=== PATIENT | male | born 1985 | race African-American/Black ===

== ENCOUNTER 2021-07-14 12:50 | Inpatient (IN) | payer OTHER, SELFPAY ==
--- NOTE | ~2021-07-14 | CT_ITS ---
EXAMINATION: NONCONTRAST HEAD CT NONCONTRAST MAXILLOFACIAL CT NONCONTRAST CERVICAL SPINE CT INDICATION INFORMATION: Seizure. Left-sided headache. Nasal discharge. COMPARISON: None TECHNIQUE: Separate noncontrast CT examinations of the head, maxillofacial bones, and cervical spine were performed. Coronal and sagittal images were created for each examination at the technologist workstation. This CT examination was performed using dose optimization techniques as appropriate, variously including the following: *Automated exposure control *Adjustment of mA and/or kV according to patient size (this includes techniques or standardized protocols for targeted exams where dose is matched to indication/reason for exam; i.e. extremities or head) *Use of iterative reconstruction technique DLP: 1502 mGy-cm FINDINGS: Head: There is no evidence of acute intracranial hemorrhage or territorial infarction. No abnormal mass effect or midline shift is seen. Sprague to white matter differentiation is well preserved. No extra-axial fluid collections are identified. No hydrocephalus. No significant volume loss. There is no abnormal attenuation within the brain parenchyma. No acute soft tissue abnormality. No calvarial fracture. The mastoid air cells are well aerated. Maxillofacial: No acute maxillofacial fractures are seen. There is complete opacification of the left sphenoid sinus with occlusion of the sphenoethmoidal recess. Diminutive right sphenoid sinus with moderate mucoperiosteal thickening. Mild opacification of the ethmoid air cells and left maxillary sinus. The uncinate process is normal bilaterally. The infundibula and middle meati are patent. The nasal septum is midline. The mandibular heads are well-seated in the condylar fossa. The orbits demonstrate a normal appearance bilaterally. The globes are intact, and there are no suspicious findings to suggest retrobulbar hemorrhage. Cervical spine: There is anatomic alignment of the vertebral bodies and posterior elements. The atlantoaxial and atlantooccipital articulations are intact. Vertebral body heights and intervertebral disc spaces are maintained. No evidence of acute fracture. No prevertebral soft tissue swelling. Mild emphysema noted at the lung apices. The thyroid gland is unremarkable. CT/CT cervical spine wo con IMPRESSION: 1. No acute intracranial finding. 2. Opacification of the left sphenoid sinus with occlusion of the sphenoethmoidal recess. Additional mild paranasal sinus opacification. 3. No fracture or malalignment of the cervical spine.
[2021-07-14 12:53] VITALS: BP 133/75; PULSE 68; RESP 18; TEMP 36.9; O2SAT 100; BMI 25.8
[2021-07-14 16:36] VITALS: BP 129/91; PULSE 61; RESP 18; TEMP 36.6; O2SAT 100
--- NOTE | 2021-07-14 16:36 | ED.SEIZURE ---
HPI - Seizure General Chief Complaint: Seizure Stated Complaint: Seizure 07/09 Fluid leaking from nose/eye/headache Time Seen by Provider: 07/14/21 16:06 Source: patient Mode of arrival: ambulatory Limitations: no limitations History of Present Illness HPI Narrative: 35-year-old male with a past medical history of seizures currently on 750 mg Keppra b.i.d. being followed by Dr. Louise presenting to the ED with complaints of a headache pressure-like sensation with associated intermittent watery leakage from the left eye/nostril since he had a seizure on 07/09/2021. He reports that he is unsure how long the seizure occurred. Although the last thing he remembers was that he was in his bed. His mother who lives next door and has access to his apartment found him Monday morning on the floor. Since then he has been having the symptoms. He reports when he turns his head the pressure pain sensation in his head worsens. He reports the pain is constant although the intensity increases intermittently. He reports that he is taking his medications as prescribed. He last seen Dr. Louise a few weeks ago. He denies any dizziness, change in vision, active watery drainage from the eye or the nostril at this time, ear pain, bloody discharge from the ears/eyes/nose, oral injury, nausea/vomiting, neck pain, facial pain, paresthesias, chest pain, shortness of breath, dyspnea exertion, orthopnea, palpitations, back pain, abdominal pain, dysuria, hematuria, focal weakness or general weakness or any other symptoms complaints concerns at this time. MD complaint: seizure Onset (ago): day(s) (Five days) Description of Episode: loss of consciousness and tonic-clonic movement Witnessed: No Trauma: Yes Seizure History: Yes Place: Home [facility] Precipitating Event: none Associated symptoms: other (Persistent left-sided pressure sensation headache with intermittent watery drainage to the eye/left nostril) Treatments prior to arrival: other (He is taking his 750 mg of Keppra b.i.d. as prescribed) Related Data Allergies Allergy/AdvReac Type Severity Reaction Status Date / Time No Known Allergies Allergy Verified 07/14/21 12:53 Review of Systems Review of Systems: Constitutional : No changes in activity, No lethargy, No recent prior head injury, No agitation, No increased fussiness ENT/Mouth : Positive Left nostril watery discharge, No Ear Pain Eyes: Positive Left eye watery discharge, No Eye Pain, No Swelling, No Redness, No Foreign Body, No Vision Changes Cardiovascular : No Chest Pain, No SOB Respiratory : No Cough Gastrointestinal : No Nausea, No Vomiting, No abdominal Pain Genitourinary : No Dysuria, No Urinary Frequency, No Urinary Incontinence, No Urgency, No Flank Pain Musculoskeletal : No joint pain, No neck stiffness, No back pain/injury Skin : No lacerations Neuro : Positive Headache s/p seizure, No unsteady gait, No Paresthesias, No altered mental status, No dizziness Denies past medical history of HIV, recent trauma, coagulopathy, recent spinal/ epidural procedure, new medication, URI symptoms, close contacts with similar symptoms, tick bite, or known CO2 exposure. Yes all other systems are reviewed and are negative [facility] Past Medical History Attestation statement: The following information was validated with the patient. Social History Social History Advance Directives: No Physical Exam Vital Signs: Vital Signs: Last Vital Signs Temp 98 F 07/14/21 16:36 Pulse 61 07/14/21 16:36 Resp 18 07/14/21 16:36 BP 129/91 H 07/14/21 16:36 Pulse Ox 100 07/14/21 16:36 Body Mass Index 25.8 Vital signs have been reviewed as normal and appeared to be correct. Blood pressure normal. Heart rate normal. Respiration rate normal. Temperature normal. Oxygen saturation normal. Appearance: Alert. Oriented X3. No acute distress. Head: Normal external exam. Normocephalic. Atraumatic. Able to rotate head bilaterally. No facial tenderness is noted. No Carty signs or raccoon eyes noted. Eyes: PERRLA. EOMI. No nystagmus noted. Conjunctiva and sclera normal. Eyelids normal. Corneal reflex normal. No watery drainage from bilateral eyes at this time. No purulent drainage noted. ENT: EAC normal. TM's Normal. No septal hematoma noted. No hemotympanum noted. No active drainage/leaking from any of the nostrils at this time. Hearing normal. Pharynx normal. Uvula midline. tongue midline. Moist mucous membranes. No trismus noted. No drooling noted. No muffled voice noted. Neck: Normal inspection. Neck supple. FROM. No adenopathy. Thyroid Normal. No meningeal signs. No neck mass noted. CVS: Normal heart rate and rhythm. Heart sound normal. No murmurs noted. Pulses normal throughout. Respiratory: No respiratory distress. Painless inspiration. Breath sounds normal. No wheezes/rales/rhonchi noted. Chest nontender. No accessory muscle usage noted or decreased air movement noted. Back: Full range of motion noted. Skin: Skin warm and dry. Normal skin color. Normal skin turgor. No rashes/lesions/lacerations noted. Extremities: Extremities exhibit normal range of motion. Extremities nontender. Able to shrug shoulders bilaterally and keep up against resistance. Neuro: Oriented X 3. No motor deficit. No sensory deficit. Reflexes normal. Moving all extremities. No focal motor deficits. Cranial nerves II-XI intact bilaterally. Facial strength normal. Normal cognition. Speech normal. Gait normal. Strength 5/5 throughout. No pronator drift. No tremor noted. No fasciculations noted. Muscle tone normal throughout. No asterixis noted. Vrutrl-xp-sldp test normal. Heel to ramirez test normal. Tandem gait normal. Does not sway with eyes open. Romberg test negative. Rapid alternating movement upper extremity normal. Rapid alternating movement lower extremity normal. Hand drop from overhead-Mrs. face. No rigidity noted. Course Course Course Narrative: 16:30pm - 35-year-old male with a past medical history of seizures currently on 750 mg Keppra b.i.d. being followed by Dr. Louise presenting to the ED with complaints of a headache pressure-like sensation with associated intermittent watery leakage from the left eye/nostril since he had a seizure on 07/09/2021. He reports that he is unsure how long the seizure occurred. Although the last thing he remembers was that he was in his bed. His mother who lives next door and has access to his apartment found him Saturday morning on the floor. Since then he has been having the symptoms. He reports when he turns his head the pressure pain sensation in his head worsens. He reports the pain is constant although the intensity increases intermittently. He reports that he is taking his medications as prescribed. He last seen Dr. Louise a few weeks ago. On exam patient is alert and oriented x3. Not in any acute distress. No neuro deficits are noted. Normal steady gait. No Carty signs or raccoon eyes noted. No abnormalities noted to the eyes or discharge. No nasal discharge at this time. No facial tenderness noted. Neck is supple and nontender with full range of motion. Lungs clear to auscultation. CV RRR. 5/5 motor strength on all 4 extremities. Reflexes are all intact. Pulses are normal. Plan: Labs, CT scan of brain/cervical spine/facial bones then re-evaluate Reevaluation(s) Reevaluation #1: - CPK at 4464. - mild anemia. - AST 48. - Otherwise all other labs WNL. - Keppra level pending. - CT scan of brain within normal limits. CT scan of cervical spine within normal limits. CT scan of facial bones revealed complete ossification of the left ethmoid sinus consistent with acute sinusitis infection therefore will start on p.o. Augmentin. - will also give 2-3 L of IV fluids and admit for rhabdomyolysis. Discussed this case with Dr. Ugalde who will admit at this time. Patient understands agrees with this plan. Time: 18:04 MDM - Seizure Medical Records Attestation: I reviewed the patient's medical records. Lab Data Attestation: I reviewed the patient's lab results. Result diagrams: 07/14/21 16:42 07/14/21 16:42 Labs: Lab Results 07/14/21 07/14/21 07/14/21 Range/Units 16:42 16:42 16:42 WBC 7.3 (4.8-10.8) X10*3/uL RBC 5.14 (4.60-5.80) X10*6/uL Hgb 13.8 L (14.0-18.0) g/dl Hct 41.8 L (42-52) % MCV 81.3 (80-98) fL MCH 26.8 L (27.0-33.0) pg MCHC 33.0 (31.0-36.0) g/dl RDW 15.2 (11.0-16.0) % Plt Count 218 (160-400) X10*3/uL MPV 11.5 (9.4-12.4) fL Immature Gran % (Auto) 0.3 (0.0-0.4) % Neut % (Auto) 50.5 (45-73) % Lymph % (Auto) 34.5 (20-40) % [place] % (Auto) 10.0 (2-11) % Eos % (Auto) 4.0 (0-4) % Baso % (Auto) 0.7 (0-2) % Lymph # (Auto) 2.5 (1.2-4.9) X10*3/uL [place] # (Auto) 0.7 (0.1-1.2) X10*3/uL Eos # (Auto) 0.3 (0.0-0.4) X10*3/uL Baso # (Auto) 0.1 (0.0-0.2) X10*3/uL Abs Immat Gran (auto) 0.02 (0.00-0.03) X10*3/uL Absolute Neuts (auto) 3.7 (2.0-8.3) X10*3/uL Absolute Nucleated RBC 0.000 (0.0-0.012) X10*3/uL Nucleated RBC % (auto) 0.0 (0.0-0.2) /100WBC PT 12.4 (9.9-13.0) SEC INR 1.1 (0.9-1.1) Sodium 139 (135-145) mmol/L Potassium 4.5 (3.3-5.1) mmol/L Chloride 105 (96-108) mmol/L Carbon Dioxide 24 (22-29) mmol/L Anion Gap 15 (12-20) BUN 6 L (9-16) mg/dL Creatinine 1.06 (0.5-1.4) mg/dL Estim Creat Clear Calc 95.0 Estimated GFR > 60 Random Glucose 94 (60-115) mg/dL Calcium 9.5 (8.4-10.2) mg/dL Magnesium 1.8 (1.6-2.6) mg/dL Total Bilirubin 0.5 (0.0-1.0) mg/dL AST 48 H (5-37) U/L ALT 30 (0-40) U/L Alkaline Phosphatase 71 (39-117) U/L Total Creatine Kinase 4464 H (38-174) U/L Total Protein 7.7 (6.5-8.0) g/dL Albumin 4.4 (3.5-5.0) g/dL COVID-19 (MARGARITA) (Negative) COVID-19 Clin Com 07/14/21 Range/Units 17:51 WBC (4.8-10.8) X10*3/uL RBC (4.60-5.80) X10*6/uL Hgb (14.0-18.0) g/dl Hct (42-52) % MCV (80-98) fL MCH (27.0-33.0) pg MCHC (31.0-36.0) g/dl RDW (11.0-16.0) % Plt Count (160-400) X10*3/uL MPV (9.4-12.4) fL Immature Gran % (Auto) (0.0-0.4) % Neut % (Auto) (45-73) % Lymph % (Auto) (20-40) % [place] % (Auto) (2-11) % Eos % (Auto) (0-4) % Baso % (Auto) (0-2) % Lymph # (Auto) (1.2-4.9) X10*3/uL [place] # (Auto) (0.1-1.2) X10*3/uL Eos # (Auto) (0.0-0.4) X10*3/uL Baso # (Auto) (0.0-0.2) X10*3/uL Abs Immat Gran (auto) (0.00-0.03) X10*3/uL Absolute Neuts (auto) (2.0-8.3) X10*3/uL Absolute Nucleated RBC (0.0-0.012) X10*3/uL Nucleated RBC % (auto) (0.0-0.2) /100WBC PT (9.9-13.0) SEC INR (0.9-1.1) Sodium (135-145) mmol/L Potassium (3.3-5.1) mmol/L Chloride (96-108) mmol/L Carbon Dioxide (22-29) mmol/L Anion Gap (12-20) BUN (9-16) mg/dL Creatinine (0.5-1.4) mg/dL Estim Creat Clear Calc Estimated GFR Random Glucose (60-115) mg/dL Calcium (8.4-10.2) mg/dL Magnesium (1.6-2.6) mg/dL Total Bilirubin (0.0-1.0) mg/dL AST (5-37) U/L ALT (0-40) U/L Alkaline Phosphatase (39-117) U/L Total Creatine Kinase (38-174) U/L Total Protein (6.5-8.0) g/dL Albumin (3.5-5.0) g/dL COVID-19 (MARGARITA) Negative (Negative) COVID-19 Clin Com See Note Imaging Data CT scan of brain/facial bones/cervical spine without contrast: Attestation: I personally reviewed and interpreted this imaging study as follows: Radiologist's impression: FINDINGS: Head: There is no evidence of acute intracranial hemorrhage or territorial infarction. No abnormal mass effect or midline shift is seen. Sprague to white matter differentiation is well preserved. No extra-axial fluid collections are identified. No hydrocephalus. No significant volume loss. There is no abnormal attenuation within the brain parenchyma. No acute soft tissue abnormality. No calvarial fracture. The mastoid air cells are well aerated. Maxillofacial: No acute maxillofacial fractures are seen. There is complete opacification of the left sphenoid sinus with occlusion of the sphenoethmoidal recess. Diminutive right sphenoid sinus with moderate mucoperiosteal thickening. Mild opacification of the ethmoid air cells and left maxillary sinus. The uncinate process is normal bilaterally. The infundibula and middle meati are patent. The nasal septum is midline. The mandibular heads are well-seated in the condylar fossa. The orbits demonstrate a normal appearance bilaterally. The globes are intact, and there are no suspicious findings to suggest retrobulbar hemorrhage. Cervical spine: There is anatomic alignment of the vertebral bodies and posterior elements. The atlantoaxial and atlantooccipital articulations are intact. Vertebral body heights and intervertebral disc spaces are maintained.? No evidence of acute fracture. No prevertebral soft tissue swelling. Mild emphysema noted at the lung apices. The thyroid gland is unremarkable. CT/CT cervical spine wo con IMPRESSION: ? 1. No acute intracranial finding. 2. Opacification of the left sphenoid sinus with occlusion of the sphenoethmoidal recess. Additional mild paranasal sinus opacification. 3. No fracture or malalignment of the cervical spine. Critical Care Time Critical Care Time Critical Care Time: Yes Total Critical Care Time: 60 Attestation: I personally attest to this time spent taking care of the patient Discharge Plan Discharge Clinical Impression: Seizure, Headache, Sinusitis, Rhabdomyolysis Patient Disposition: Admitted As Inpatient
[2021-07-14 16:47] LABS: MANUAL DIFF FLAG NO
[2021-07-14 16:55] LABS: INTERNATIONAL NORM RATIO 1.1 (0.9-1.1); Prothrombin Time 12.4 SEC (9.9-13.0)
[2021-07-14 17:01] LABS: Basophils Absolute Auto 0.1 X10*3/uL (0.0-0.2); Basophils Percent Auto 0.7 % (0-2); Eosinophils Absolute Auto 0.3 X10*3/uL (0.0-0.4); Hematocrit 41.8 % (42-52); Hemoglobin 13.8 g/dl (14.0-18.0); Imm Gran Abs Auto 0.02 X10*3/uL (0.00-0.03); Imm Gran Pct Auto 0.3 % (0.0-0.4); Lymphocytes Absolute Auto 2.5 X10*3/uL (1.2-4.9); Lymphocytes Percent Auto 34.5 % (20-40); Mean Corpuscular Hemoglobin 26.8 pg (27.0-33.0); Mean Corpuscular Volume 81.3 fL (80-98); Mean Platelet Volume 11.5 fL (9.4-12.4); Monocytes Absolute Auto 0.7 X10*3/uL (0.1-1.2); Neutrophils Absolute Auto 3.7 X10*3/uL (2.0-8.3); Neutrophils Percent Auto 50.5 % (45-73); Platelet Count 218 X10*3/uL (160-400); Red Blood Count 5.14 X10*6/uL (4.60-5.80); Red Cell Distribution Width 15.2 % (11.0-16.0); White Blood Count 7.3 X10*3/uL (4.8-10.8)
[2021-07-14 17:19] LABS: Alanine Aminotransferase 30 U/L (0-40); Albumin Level 4.4 g/dL (3.5-5.0); Alkaline Phosphatase 71 U/L (39-117); Anion Gap 15 (12-20); Aspartate Amino Transferase 48 U/L (5-37); Bilirubin Total 0.5 mg/dL (0.0-1.0); Blood Urea Nitrogen 6 mg/dL (9-16); Calcium 9.5 mg/dL (8.4-10.2); Carbon Dioxide 24 mmol/L (22-29); Chloride 105 mmol/L (96-108); Estimated Glomerular Filt Rate > 60; Glucose Random 94 mg/dL (60-115); Magnesium 1.8 mg/dL (1.6-2.6); Potassium 4.5 mmol/L (3.3-5.1); Sodium 139 mmol/L (135-145); Total Protein 7.7 g/dL (6.5-8.0)
--- NOTE | 2021-07-14 17:28 | ECG_ITS ---
Test Reason : Seizure Blood Pressure : / mmHG Vent. Rate : 061 BPM Atrial Rate : 061 BPM P-R Int : 184 ms QRS Dur : 094 ms QT Int : 414 ms P-R-T Axes : 064 067 055 degrees QTc Int : 416 ms Normal sinus rhythm Early repolarization Normal ECG No previous ECGs available Referred By: Carolina Garcia Electronically Signed By:PAXTON BLUNT MD
[2021-07-14 18:13] LABS: COVID-19 Test Negative (Negative)
[2021-07-14] MEDS: 0.9 % Sodium Chloride 1,000 ML 999 ML IVCONT ×2 (18:23→18:24)
[2021-07-14 18:32] LABS: Appearance Urine CLEAR; Color Urine YELLOW; Glucose Urine UA NEG (NEG); Leukocyte Esterase Urine NEG (NEG); Nitrite Urine NEG (NEG); PH 6.5 (5.0-8.0); Urine Blood NEG (NEG); Urine Ketones NEG (NEG); Urine Protein NEG (NEG-TRACE)
[2021-07-14] MEDS: levETIRAcetam 250 MG TABLET 750 MG PO (19:13)
[2021-07-14] MEDS: cloNIDine HCL 0.1 MG TABLET PO (19:13)
[2021-07-14] MEDS: Amoxicillin/Potassium Clav 875 MG TABLET PO (19:13)
--- NOTE | 2021-07-14 19:36 | P.HPHOSP_ITS ---
History of Present Illness Date of Service: 07/14/21 Chief Complaint: Seizure 35-year-old male with a past medical history of seizures presented to the hospital with a chief complaint of seizure episode. Patient reported that on Monday night he went to the bed and next day morning he was found on the floor by his mother and he was noted to him mildly postictal; Denies taking any new medications. As he was not feeling well even today he decided to come to the ER for further evaluation. Open Denies any blurry visions. Denies any numbness tingling or focal weakness. Denies any chest pain palpitations lightheadedness or dizziness. Denies any GI or symptoms. Patient reports that his not sure of his typical seizure episode; but was told by his mother but his whole body shakes and he loses consciousness and has tongue bite and subsequently postictal. Had similar episode on last /Monday. Since then he continued to have headaches, postnasal drip, congestion. Denies any cough or sputum production. Reports that he follows with ; who has been adjusting his Keppra. Denies missing any doses. Review of all other systems is negative except mentioned above ER course: Per ER team patient's exam was nonfocal; own CT head showed no acute intracranial findings but noted to have sinusitis. Patient was started on Augmentin. Patient Keppra levels have been sent. Admitted to the hospital for further management. ER team also mentioned the patient noted to have elevated CPK level; start IV fluids. PMFSH Pertinent family history: Reviewed Social History Advance Directives: No Meds Allergies Allergy/AdvReac Type Severity Reaction Status Date / Time No Known Allergies Allergy Verified 07/14/21 12:53 Active Medications: Current Medications Amoxicillin/Clavulanate Potassium (Amoxicillin/Potassium Clav 875 Mg Tablet) 875 mg PO BID MARIA T Stop: 07/24/21 20:59 Last Admin: 07/14/21 19:13 Dose: 875 mg Documented by: Clonidine HCl (Clonidine Hcl 0.1 Mg Tablet) 0.1 mg PO BID MARIA T; Protocol Last Admin: 07/14/21 19:13 Dose: 0.1 mg Documented by: Levetiracetam (Levetiracetam 250 Mg Tablet) 750 mg PO BID@0800,2000 [facility] Last Admin: 07/14/21 19:13 Dose: 750 mg Documented by: Pharmacy Consult (Consult Rx Perform Med Rec) 1 each MISCELLANE ONCE PRN PRN Reason: Consult order Home Medications Medication Instructions Recorded Confirmed Last Taken Type clonidine HCl 0.1 mg tablet 1 tab PO BID 07/14/21 07/14/21 07/14/21 History levetiracetam 750 mg tablet 1 tab PO BID@07/14/21 07/14/21 07/14/21 History Physical Exam Vital Signs and Narrative: Vital Signs: Last Vital Signs Temp 98 F 07/14/21 16:36 Pulse 61 07/14/21 16:36 Resp 18 07/14/21 16:36 BP 129/91 H 07/14/21 16:36 Pulse Ox 100 07/14/21 16:36 Body Mass Index 25.8 Gen: Appears be in no acute distress HEENT: NCAT, Moist mucosa. Pulmonary: Vesicular breath sounds, fair air entry CVS: Normal S1-S2 Abdomen: BS+, Soft, Nontender Extremities: Warm well perfused Neuro: Alert and awake. Grossly nonfocal Results Labs CBC and Chem 7: 07/14/21 16:42 07/14/21 16:42 Labs: Laboratory Results - last 24 hr 07/14/21 07/14/21 07/14/21 16:42 16:42 16:42 MCV 81.3 MCH 26.8 L MCHC 33.0 RDW 15.2 Plt Count 218 MPV 11.5 Immature Gran % (Auto) 0.3 Neut % (Auto) 50.5 Lymph % (Auto) 34.5 [place] % (Auto) 10.0 Eos % (Auto) 4.0 Baso % (Auto) 0.7 Lymph # (Auto) 2.5 [place] # (Auto) 0.7 Eos # (Auto) 0.3 Baso # (Auto) 0.1 Abs Immat Gran (auto) 0.02 Absolute Neuts (auto) 3.7 Absolute Nucleated RBC 0.000 Nucleated RBC % (auto) 0.0 PT 12.4 INR 1.1 Anion Gap 15 Estim Creat Clear Calc 95.0 Estimated GFR > 60 Random Glucose 94 Calcium 9.5 Magnesium 1.8 Total Bilirubin 0.5 AST 48 H ALT 30 Alkaline Phosphatase 71 Total Creatine Kinase 4464 H Total Protein 7.7 Albumin 4.4 Urine Color Urine Appearance Urine pH Ur Specific [place] Urine Protein Urine Glucose (UA) Urine Ketones Urine Blood Urine Nitrite Ur Leukocyte Esterase COVID-19 (MARGARITA) COVID-19 Clin Com 07/14/21 07/14/21 17:51 18:22 MCV MCH MCHC RDW Plt Count MPV Immature Gran % (Auto) Neut % (Auto) Lymph % (Auto) [place] % (Auto) Eos % (Auto) Baso % (Auto) Lymph # (Auto) [place] # (Auto) Eos # (Auto) Baso # (Auto) Abs Immat Gran (auto) Absolute Neuts (auto) Absolute Nucleated RBC Nucleated RBC % (auto) PT INR Anion Gap Estim Creat Clear Calc Estimated GFR Random Glucose Calcium Magnesium Total Bilirubin AST ALT Alkaline Phosphatase Total Creatine Kinase Total Protein Albumin Urine Color YELLOW Urine Appearance CLEAR Urine pH 6.5 Ur Specific [place] 1.010 Urine Protein NEG Urine Glucose (UA) NEG Urine Ketones NEG Urine Blood NEG Urine Nitrite NEG Ur Leukocyte Esterase NEG COVID-19 (MARGARITA) Negative COVID-19 Clin Com See Note Imaging Radiologist's Impressions: Impressions Cervical Spine CT 07/14/21 16:26 IMPRESSION: 1. No acute intracranial finding. 2. Opacification of the left sphenoid sinus with occlusion of the sphenoethmoidal recess. Additional mild paranasal sinus opacification. 3. No fracture or malalignment of the cervical spine. Face CT 07/14/21 16:26 IMPRESSION: 1. No acute intracranial finding. 2. Opacification of the left sphenoid sinus with occlusion of the sphenoethmoidal recess. Additional mild paranasal sinus opacification. 3. No fracture or malalignment of the cervical spine. Head CT 07/14/21 16:26 IMPRESSION: 1. No acute intracranial finding. 2. Opacification of the left sphenoid sinus with occlusion of the sphenoethmoidal recess. Additional mild paranasal sinus opacification. 3. No fracture or malalignment of the cervical spine. Assessment and Plan (1) Seizure: Status: Acute (2) Rhabdomyolysis: Status: Acute (3) Sinusitis: Status: Acute 35-year-old male with a past medical history of seizures presented to the hospital with a chief complaint of seizure episode. Seizure episode: Did not have any further episodes. Continue home Keppra 750 mg b.i.d. Ativan p.r.n. Seizure precautions Neurology consult for further recommendations. CT head showed no acute findings Sinusitis: Continue Augmentin. Rhabdomyolysis: Continue IV fluids. Repeat CPK levels. DVT prophylaxis: SCD boots Code status: Full code Quality Stroke Does the patient have a stroke diagnosis?: No VTE Prior VTE?: No VTE Risk Level:: Medical - low VTE Device Contraindication: N/A - Device Ordered VTE Drug Contraindication: Treatment Not Indicated
[2021-07-14 20:29] VITALS: BP 122/83; PULSE 70; RESP 20; TEMP 36.8; O2SAT 98
[2021-07-14] MEDS: Dextrose 5 % and 0.45 % NaCl 1,000 ML 100 ML IVCONT (20:49)
[2021-07-14 20:50] VITALS: BP 122/83; PULSE 78; RESP 18; TEMP 36.6; O2SAT 98
--- NOTE | 2021-07-14 22:10 | MHC.CM.PN ---
CM met with admitted patient with bed assignment pending. A&Ox3. IMM not necessary. Pt is employed by [employer]. Pt lives with family. Uses no DME or services. Pt has NOT been vaccinated. No HCP on file. Education provided and patient declines at this time. Pt aware that CM will follow him in [facility] and they can completed a HCP for him if he changes his mind. D/C plan is home without services. Patient will arrange transportation home. CM to follow for d/c needs.
[2021-07-14 22:33] VITALS: BP 132/80; PULSE 58; RESP 20; TEMP 36.6; O2SAT 100
[2021-07-15] VITALS: BP 117/75; PULSE 61; RESP 16; TEMP 36.8; O2SAT 100
[2021-07-15] MEDS: 0.9 % Sodium Chloride Flush 3 ML SYRINGE IVFLUSH ×2 (00:51→09:09)
--- NOTE | 2021-07-15 01:47 | PC.NURSE ---
pt is sleeping at this time. no sign of distress this time.
--- NOTE | 2021-07-15 02:39 | PC.NURSE ---
pt oob with a steady gait. pt denies sob or chest pain. no dizziness or lightheadness. pt placed on bedside front desk monitor, will continue to monitor.
[2021-07-15] MEDS: Dextrose 5 % and 0.45 % NaCl 1,000 ML 100 ML IVCONT (05:30)
[2021-07-15 05:33] VITALS: BP 174/76; PULSE 58; RESP 12
--- NOTE | 2021-07-15 05:48 | PC.NURSE ---
pt is sleeping, no sign of distress. medicated per mar.
[2021-07-15 06:43] LABS: MANUAL DIFF FLAG NO
[2021-07-15 06:52] LABS: Basophils Percent Auto 0.5 % (0-2); Eosinophils Absolute Auto 0.3 X10*3/uL (0.0-0.4); Eosinophils Percent Auto 3.9 % (0-4); Hemoglobin 13.2 g/dl (14.0-18.0); Imm Gran Abs Auto 0.02 X10*3/uL (0.00-0.03); Imm Gran Pct Auto 0.2 % (0.0-0.4); Lymphocytes Absolute Auto 2.7 X10*3/uL (1.2-4.9); Lymphocytes Percent Auto 32.7 % (20-40); Mean Corpuscular Hemoglobin 26.5 pg (27.0-33.0); Mean Corpuscular Volume 80.3 fL (80-98); Mean Platelet Volume 12.1 fL (9.4-12.4); Monocytes Absolute Auto 0.9 X10*3/uL (0.1-1.2); Neutrophils Absolute Auto 4.2 X10*3/uL (2.0-8.3); Neutrophils Percent Auto 51.7 % (45-73); Platelet Count 215 X10*3/uL (160-400); Red Blood Count 4.98 X10*6/uL (4.60-5.80); White Blood Count 8.1 X10*3/uL (4.8-10.8)
[2021-07-15 07:09] LABS: Anion Gap 10 (12-20); Blood Urea Nitrogen 6 mg/dL (9-16); Calcium 9.3 mg/dL (8.4-10.2); Carbon Dioxide 28 mmol/L (22-29); Chloride 108 mmol/L (96-108); Creatinine Clr Calc Pharmacy 96.8; Estimated Glomerular Filt Rate > 60; Glucose Random 94 mg/dL (60-115); Potassium 4.6 mmol/L (3.3-5.1); Sodium 141 mmol/L (135-145)
[2021-07-15 09:09] VITALS: BP 120/77; PULSE 65
[2021-07-15] MEDS: levETIRAcetam 250 MG TABLET 750 MG PO (09:09)
[2021-07-15] MEDS: cloNIDine HCL 0.1 MG TABLET PO (09:09)
[2021-07-15] MEDS: Amoxicillin/Potassium Clav 875 MG TABLET PO (09:09)
[2021-07-15 09:11] VITALS: BP 120/77; PULSE 65; RESP 16
[2021-07-15 10:36] VITALS: BMI 26.2
[2021-07-15 10:46] VITALS: BP 116/81; PULSE 81; RESP 20; TEMP 36.4; O2SAT 100
--- NOTE | 2021-07-15 10:56 | P.CNNE_ITS ---
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 His 1st episode was in 2019, when he fell and passed out. After that he started having these episodes. Many of these episodes were started with a feeling of dizziness, lightheadedness, sweating, and severe abnormal taste in his mouth. This would lead to falling and shaking all over. An ambulatory EEG in [facility] in February of 2021 revealed right temporal seizure focus. He was treated with levetiracetam but was resistant to treatment stating that he did not think he needed the medicine anymore. Apparently few days ago he had another spell. He said that he was feeling not well and then slept and apparently the event occurred during sleep causing generalized shaking tongue bite. He woke up with a severe left-sided headache runny nose and apparent swelling of left side of his face. He has called me and was being treated with [id number] medicine but continued to have that symptom and came to emergency room. This morning his headache was much better. Review of Systems Review of Systems: No recent, before seizure, cold or flu-like illness. He had left-sided headache after seizure which was better. [facility] Social History Social History Household Members: None Housing: Apartment Do you presently have visiting nurse or other home services: No Alcohol intake: unknown Patient Tobacco Use Status: Current everyday Tobacco user Tobacco use type: Cigarette Smoked in Last 30 Days: Yes Patient Interested in Nicotine Replacement: No Patient Given Instructions on How to Stop Smoking: Yes Date Education Initiated: 07/15/21 Second Hand Smoke Exposure: No Use of substances other than those prescribed or required for medical reasons: Yes Substance Use Type: Marijuana Substance Use Frequency: Daily Last Used Substance: Days (ago) Currently Displaying Signs/Symptoms of Drug Intoxication Withdrawal: No Any prior treatment program specific to substance use: No Have you been hit, kicked, punched, or otherwise hurt by someone within the past year? If so, by whom?: No Do you feel safe in your current relationship?: No Current Relationship Is there a partner from a previous relationship who is making you feel unsafe now?: No Are you made to feel afraid or neglected: No Advance Directives: No Do you have thoughts of harming others: None Do you have a plan to hurt others: No Plan Recently lost weight without trying: No Nutrition Risks: No Nutritional Risk Poor oral hygiene: No service: No Current occupational status: employed Meds Allergies Allergy/AdvReac Type Severity Reaction Status Date / Time No Known Allergies Allergy Verified 07/14/21 12:53 Active Medications: Current Medications Acetaminophen (Acetaminophen 325 Mg Tablet) 650 mg PO Q6H PRN PRN Reason: Pain, Mild (Pain Scale 1-3) Amoxicillin/Clavulanate Potassium (Amoxicillin/Potassium Clav 875 Mg Tablet) 875 mg PO BID [facility] Stop: 07/24/21 20:59 Last Admin: 07/15/21 09:09 Dose: 875 mg Documented by: Clonidine HCl (Clonidine Hcl 0.1 Mg Tablet) 0.1 mg PO BID [facility]; Protocol Last Admin: 07/15/21 09:09 Dose: 0.1 mg Documented by: Dextrose/Sodium Chloride (D51/2ns) 1,000 mls @ 100 mls/hr IVCONT .Q10H [facility] Last Admin: 07/15/21 05:30 Dose: 100 mls/hr Documented by: Levetiracetam (Levetiracetam 250 Mg Tablet) 750 mg PO BID@0800,2000 [facility] Last Admin: 07/15/21 09:09 Dose: 750 mg Documented by: Lorazepam (Lorazepam 2 Mg/Ml Vial) 1 mg IVPUSH Q2H PRN PRN Reason: Seizures Melatonin (Melatonin 3 Mg Tablet) 6 mg PO BEDTIME PRN PRN Reason: Insomnia Pharmacy Consult (Consult Rx Perform Med Rec) 1 each MISCELLANE ONCE PRN PRN Reason: Consult order Senna (Sennosides 8.6 Mg Tablet) 17.2 mg PO BEDTIME PRN PRN Reason: Constipation Sodium Chloride (0.9 % Sodium Chloride Flush 3 Ml Syringe) 3 ml IVFLUSH QSHIFT [facility] Last Admin: 07/15/21 09:09 Dose: 3 ml Documented by: Home Medications Medication Instructions Recorded Confirmed Last Taken Type clonidine HCl 0.1 mg tablet 1 tab PO BID 07/14/21 07/14/21 07/14/21 History levetiracetam 750 mg tablet 1 tab PO BID@0800,199907/14/21 07/14/21 07/14/21 History Physical Exam Vital Signs: Vital Signs: Last Vital Signs Temp 97.5 F 07/15/21 10:46 Pulse 81 07/15/21 10:46 Resp 20 07/15/21 10:46 BP 116/81 07/15/21 10:46 Pulse Ox 100 07/15/21 10:46 Body Mass Index 26.2 Neuro: Other: He was alert and awake with normal spontaneity of speech fluency comprehension and affect. Face was symmetrical. There was no eye redness. Extraocular muscles were intact. Visual scott are full. Deep tendon reflexes were 2+ with flexor plantars. Results Labs CBC & Chem 7: 07/15/21 06:34 07/15/21 06:34 Labs: Short CBC 07/14/21 07/15/21 Range/Units 16:42 06:34 WBC 7.3 8.1 (4.8-10.8) X10*3/uL Hgb 13.8 L 13.2 L (14.0-18.0) g/dl Hct 41.8 L 40.0 L (42-52) % Plt Count 218 215 (160-400) X10*3/uL BMP 07/14/21 07/15/21 16:42 06:34 Sodium 139 141 Potassium 4.5 4.6 Chloride 105 108 Carbon Dioxide 24 28 BUN 6 L 6 L Creatinine 1.06 1.04 Calcium 9.5 9.3 Cardiac Enzymes 07/14/21 07/15/21 Range/Units 16:42 06:34 Total Creatine Kinase 4464 H 2783 H D (38-174) U/L Liver Function 07/14/21 Range/Units 16:42 Total Bilirubin 0.5 (0.0-1.0) mg/dL AST 48 H (5-37) U/L ALT 30 (0-40) U/L Alkaline Phosphatase 71 (39-117) U/L Albumin 4.4 (3.5-5.0) g/dL Urine 07/14/21 Range/Units 18:22 Urine Color YELLOW Urine Appearance CLEAR Urine pH 6.5 (5.0-8.0) Ur Specific [place] 1.010 (1.005-1.025) Urine Protein NEG (NEG-TRACE) MG/DL Urine Glucose (UA) NEG (NEG) MG/DL He had at noncontrast head CT, facial CT and cervical spine CT. Other than left Rose had sinus disease no significant abnormality was noted. Assessment and Plan (1) Seizure: Status: Acute 35 years old man with epilepsy comprised of partial complex secondarily g eneralized seizures with right temporal focus and a normal brain MRI. He had resisted to take medicines in the past and had a breakthrough seizure. His headache was probably either postictal or related to sinus disease. Because of his complaints of runny nose and facial swelling, I would suggest course of treatment for sinusitis. Otherwise he should learn to lessen from this episode and restart taking his medicine levetiracetam 750 mg twice a day. He should be advised not to drive and not to be involved in an activity that could put his life in danger. Otherwise no further testing is needed. Procedures Date of Service Date of Service: 07/15/21
--- NOTE | 2021-07-15 11:40 | PC.NURSE ---
Skin assessment completed. Patient has no skin issues or open wounds at this time.
--- NOTE | 2021-07-15 13:05 | P.DS_ITS ---
DS: Providers Provider Date of Service: 07/15/21 Date of admission: 07/14/21 19:33 Primary care physician: Manuel Chao MD Consults: 07/14/21 19:33 Consult to Neurology Routine Consulting Provider: [facility] Reason for consultation: seizure DS: Diagnosis Discharge Diagnosis (1) Seizure: Status: Acute DS: Summary Hospital Course Hospital Course: Chief Complaint: Seizure 35-year-old male with a past medical history of seizures presented to the hospital with a chief complaint of seizure episode. Patient reported that on Monday night he went to the bed and next day morning he was found on the floor by his mother and he was noted to him mildly postictal; Denies taking any new medications. As he was not feeling well even today he decided to come to the ER for further evaluation. Open Denies any blurry visions. Denies any numbness tingling or focal weakness. Denies any chest pain palpitations lightheadedness or dizziness. Denies any GI or symptoms. Patient reports that his not sure of his typical seizure episode; but was told by his mother but his whole body shakes and he loses consciousness and has tongue bite and subsequently postictal. Had similar episode on last /Monday. Since then he continued to have headaches, postnasal drip, congestion.? Denies any cough or sputum production. Hospital course 35 years old man with epilepsy comprised of partial complex secondarily generalized seizures with right temporal focus, and a normal brain MRI,?ambulatory EEG at [facility] in February of 2021 revealed right temporal seizure focus, patient admitted to [facility] after a breakthrough seizure and post seizure developed left-sided headache with runny nose and facial swelling, CT head showed no acute intracranial finding but showed opacification of the left sphenoid sinus with occlusion of the spheno ethmoidal recess, during hospitalization patient had no further seizure-like activity he was started on Augmentin and saline spray for sinusitis his headache is improving patient evaluated by Dr. Louise and he recommended compliance with Keppra twice daily as he feels that patient seizure episode was likely related to noncompliance, patient is agreeable to take Keppra twice daily, he has been strongly advised to abstain from driving and to avoid tub baths, patient is now discharged home on by mouth Augmentin and saline spray he has been recommended to have outpatient close follow-up on his blood pressure since noted to have soft blood pressures on clonidine 0.1 mg b.i.d. , recommended close outpatient follow-up with PCP and Neurology. Time Spent with Patient Time attestation: Total time spent providing and/or coordinating discharge services: Discharge coordination time: Greater than 30 minutes Quality: Stroke Does the patient have a stroke diagnosis?: No Physical Exam Vital Signs: Vital Signs: Last Vital Signs Temp 97.5 F 07/15/21 10:46 Pulse 81 07/15/21 10:46 Resp 20 07/15/21 10:46 BP 116/81 07/15/21 10:46 Pulse Ox 100 07/15/21 10:46 Body Mass Index 26.2 General alert oriented x3, no acute distress. Neck supple no JVD. CVS regular rate rhythm, Respiratory lungs clear to auscultation, no respiratory distress, no wheeze, no rhonchi. Gastrointestinal abdomen soft, nontender, bowel sounds audible, no guarding , no rigidity. Extremities no edema. Neuro nonfocal, face symmetrical, speech clear. Skin no rash Psych appropriate affect DS: Data Data Completed and Pending Labs on day of discharge: Laboratory Results - last 24 hr 07/14/21 07/14/21 07/14/21 16:42 16:42 16:42 WBC 7.3 RBC 5.14 Hgb 13.8 L Hct 41.8 L MCV 81.3 MCH 26.8 L MCHC 33.0 RDW 15.2 Plt Count 218 MPV 11.5 Immature Gran % (Auto) 0.3 Neut % (Auto) 50.5 Lymph % (Auto) 34.5 [place] % (Auto) 10.0 Eos % (Auto) 4.0 Baso % (Auto) 0.7 Lymph # (Auto) 2.5 [place] # (Auto) 0.7 Eos # (Auto) 0.3 Baso # (Auto) 0.1 Abs Immat Gran (auto) 0.02 Absolute Neuts (auto) 3.7 Absolute Nucleated RBC 0.000 Nucleated RBC % (auto) 0.0 PT 12.4 INR 1.1 Sodium 139 Potassium 4.5 Chloride 105 Carbon Dioxide 24 Anion Gap 15 BUN 6 L Creatinine 1.06 Estim Creat Clear Calc 95.0 Estimated GFR > 60 Random Glucose 94 Calcium 9.5 Magnesium 1.8 Total Bilirubin 0.5 AST 48 H ALT 30 Alkaline Phosphatase 71 Total Creatine Kinase 4464 H Total Protein 7.7 Albumin 4.4 Urine Color Urine Appearance Urine pH Ur Specific [place] Urine Protein Urine Glucose (UA) Urine Ketones Urine Blood Urine Nitrite Ur Leukocyte Esterase COVID-19 ([facility]) COVID-19 Clin Com 07/14/21 07/14/21 07/15/21 17:51 18:22 06:34 WBC 8.1 RBC 4.98 Hgb 13.2 L Hct 40.0 L MCV 80.3 MCH 26.5 L MCHC 33.0 RDW 15.0 Plt Count 215 MPV 12.1 Immature Gran % (Auto) 0.2 Neut % (Auto) 51.7 Lymph % (Auto) 32.7 [place] % (Auto) 11.0 Eos % (Auto) 3.9 Baso % (Auto) 0.5 Lymph # (Auto) 2.7 [place] # (Auto) 0.9 Eos # (Auto) 0.3 Baso # (Auto) 0.0 Abs Immat Gran (auto) 0.02 Absolute Neuts (auto) 4.2 Absolute Nucleated RBC 0.000 Nucleated RBC % (auto) 0.0 PT INR Sodium Potassium Chloride Carbon Dioxide Anion Gap BUN Creatinine Estim Creat Clear Calc Estimated GFR Random Glucose Calcium Magnesium Total Bilirubin AST ALT Alkaline Phosphatase Total Creatine Kinase Total Protein Albumin Urine Color YELLOW Urine Appearance CLEAR Urine pH 6.5 Ur Specific [place] 1.010 Urine Protein NEG Urine Glucose (UA) NEG Urine Ketones NEG Urine Blood NEG Urine Nitrite NEG Ur Leukocyte Esterase NEG COVID-19 ([facility]) Negative COVID-19 Clin Com See Note 07/15/21 06:34 WBC RBC Hgb Hct MCV MCH MCHC RDW Plt Count MPV Immature Gran % (Auto) Neut % (Auto) Lymph % (Auto) [place] % (Auto) Eos % (Auto) Baso % (Auto) Lymph # (Auto) [place] # (Auto) Eos # (Auto) Baso # (Auto) Abs Immat Gran (auto) Absolute Neuts (auto) Absolute Nucleated RBC Nucleated RBC % (auto) PT INR Sodium 141 Potassium 4.6 Chloride 108 Carbon Dioxide 28 Anion Gap 10 L BUN 6 L Creatinine 1.04 Estim Creat Clear Calc 96.8 Estimated GFR > 60 Random Glucose 94 Calcium 9.3 Magnesium Total Bilirubin AST ALT Alkaline Phosphatase Total Creatine Kinase 2783 H D Total Protein Albumin Urine Color Urine Appearance Urine pH Ur Specific [place] Urine Protein Urine Glucose (UA) Urine Ketones Urine Blood Urine Nitrite Ur Leukocyte Esterase COVID-19 ([facility]) COVID-19 Clin Com Discharge Plan Discharge Patient Disposition: Home, Self-Care Discharge Diagnosis: Breakthrough seizure Sinusitis Referrals: Manuel Chao MD [Primary Care Provider] - 1 Week Discharge Medications: New amoxicillin-pot clavulanate 875-125 mg Tablet 875 mg PO BID Qty: 14 RF: 0 sodium chloride [Deep Sea Nasal] 0.65 % Aerosol,[place] 1 spray intranasal Q4H PRN (Reason: nasal congestion) Qty: 1 RF: 0 Continued clonidine HCl 0.1 mg tablet 1 tab PO BID RF: 0 levetiracetam 750 mg tablet 1 tab PO BID@0800,2000 RF: 0 Discharge Orders: Discharge Order (Routine); Ordered 07/15/21 Ordered By: Tg Villeda Diet: advance to usual diet Activity on Discharge: no driving Stand Alone Forms: Patient Portal Discharge page Care Plan Goals: Breakthrough seizure continue taking Keppra as prescribed, in regard to sinusitis take nasal saline spray and Augmentin for 7 days, check blood pressure closely and adjust dosage of clonidine if noted to have low blood pressure Health Concerns: Seizure disorder avoid driving, taking tub baths Plan of Treatment: Close outpatient follow-up with primary care physician and Neurology in next 1-2 weeks Assessment: As above
--- NOTE | 2021-07-15 13:17 | MHC.CM.PN ---
PT DISCHARGING HOME SELF-CARE, PT TO ARRANGE TRANSPORTATION.
[2021-07-15] MEDS: Butalb/Acetamin/Caff 50/325/40 TABLET 1 TAB PO (13:20)
[2021-07-18 05:57] LABS: Levetiracetam Keppra 11.8 mcg/mL (12.0-46.0)
== END 2021-07-15 15:55 | disposition home or self-care (01) | DRG 53 ==
LOC: HO.ED 18:09 → HO.EDOVER 19:39 → HO.ICU 07-15 07:34 → HO.EDOVER 07-15 08:55 → HO.S3 07-15 08:58
PROVIDERS: Physician Assistant Medical; Admitting Provider Hospitalist; Emergency Provider Internal Medicine; PCP Internal Medicine; Visit Provider Hospitalist
DX: G40.909 Epilepsy, unspecified, not intractable, without status epilepticus (principal); M62.82 Rhabdomyolysis; J32.9 Chronic sinusitis, unspecified; Z91.14 Patient's other noncompliance with medication regimen; F17.210 Nicotine dependence, cigarettes, uncomplicated; Z71.6 Tobacco abuse counseling; Z20.822 Contact with and (suspected) exposure to COVID-19; Z79.899 Other long term (current) drug therapy
CPT/HCPCS: 36415; 70450; 70486; 72125; 80048; 80053; 80177; 81003; 82550; 83735; 85025; 85610; 87635; 93005; 99285

== ENCOUNTER 2022-04-14 18:55 | Emergency (ER) | payer OTHER, SELFPAY ==
[2022-04-14 19:06] VITALS: BP 138/78; PULSE 72; RESP 18; TEMP 36.5; O2SAT 97; BMI 53.7
== END 2022-04-14 19:59 | disposition left against medical advice (07) ==
PROVIDERS: Emergency Provider Emergency Medicine
DX: R56.9 Unspecified convulsions (principal); R10.9 Unspecified abdominal pain
CPT/HCPCS: 99281